=== PATIENT | female | born 1975 | race Caucasian/White ===

== ENCOUNTER → 2020-09-24 15:58 | Outpatient (CLI) | payer SELFPAY ==
--- NOTE | 2020-09-24 16:03 | MM_ITS ---
PROCEDURE: MM DIG SCREENING MAMM BI W/CAD Digital Breast Tomosynthesis Included CLINICAL INDICATION: SCREENING There is no personal or family history of breast cancer. COMPARISON: No exams were available for comparison TECHNIQUE: Standard CC and MLO images and 3D Tomosynthesis was obtained. R2 CAD reviewed. FINDINGS: Moderate diffuse fibroglandular densities are seen throughout both breast primarily upper outer quadrants. There is slightly asymmetrically increased glandular elements upper-outer quadrant right breast. Edwin images are helpful showing no suspicious lesion in either breast. There are no suspicious microcalcifications. IMPRESSION: Fibrofatty parenchyma with no suspicious lesions seen BI-RAD Category: 1 Negative FOLLOW-UP: 1YR 1 Year Follow-up (A letter has been sent to the patient regarding results of the study.) Dictated by: Dr. Aleks Mercedes MD 09/26/2020 09:51 Dr. Aleks Mercedes MD in [place] 09/26/2020 09:51
== END ==
PROVIDERS: PCP Family Medicine; Visit Provider Family Medicine
DX: Z12.31 Encounter for screening mammogram for malignant neoplasm of breast (principal)
CPT/HCPCS: 77063; 77067

== ENCOUNTER 2021-02-28 16:30 | Emergency (ER) | payer SELFPAY ==
[2021-02-28 16:30] VITALS: BP 136/70; PULSE 63; RESP 20; TEMP 36.8; O2SAT 96; BMI 28.3
--- NOTE | 2021-02-28 16:57 | HMH.EDUTC ---
[facility] [place] Disposition Clinical Impression: Otitis media Qualifiers: Otitis media type: suppurative Chronicity: acute Laterality: left Recurrence: non-recurrent Spontaneous tympanic membrane rupture: without spontaneous rupture Qualified Code(s): H66.002 - Acute suppurative otitis media without spontaneous rupture of ear drum, left ear Disposition: Home, Self-Care Condition on Discharge: Good Instructions: Middle Ear Infection Additional Instructions: Start antibiotic as soon as possible and be sure to take as ordered for full length of time even though he should start feeling better in 24-48 hours. Tylenol or Motrin as needed for pain or fever Encourage fluids, water, Gatorade, Powerade, Pedialyte if /toddler/child Warm compresses often helps when placed over ear Return immediately for new or worsening symptoms no noticeable improvement in 48-72 hours and in 10-14 days to ensure the ears are return to baseline. Follow-up with primary care Prescriptions: cephALEXin [Cephalexin 500mg Tab] 500 mg PO BID 10 Days #20 tab Transmission Status: Pending to [id number] Referrals: Juan C Walters MD [Primary Care Provider] - Time of Disposition: 17:10 Medical Decision Making - Vincent Inquiry Pt receiving controlled substance: No Vital Signs: 02/28/21 16:30 Temperature 98.3 F Temperature Source Oral Pulse Rate [Left Brachial] 63 Respiratory Rate 20 Blood Pressure [Left Arm] 136/70 Blood Pressure Mean [Left Arm] 92 Blood Pressure Source [Left Arm] Automatic Cuff Blood Pressure Position [Left Arm] Sitting 02 Sat by Pulse Oximetry 96 Oxygen Delivery Method Room Air [facility] [place] HPI - General Chief complaint: Urgent Treatment Center Stated complaint: ear infection Time Seen by Provider: 02/28/21 16:57 Mode of Arrival: Ambulatory Source of Information: Patient Limitations: No Limitations Description of Symptoms (Recalled from Triage Doc. by RN): PATIENT C/O DECREASED HEARING TO LEFT EAR THAT STARTED TODAY. RECENTLY HAD ALLERGY SYMPTOMS HEENT Symptoms (Recalled from RN notes): Yes Resp Symptoms (Recalled from RN notes): No Skin Symptoms (Recalled from RN notes): No MS Symptoms (Recalled from RN notes): No Functional Status (Recalled from RN notes): WNL - History of Present Illness Provider Complaint: 45 yr old female presnets for left ear pain. pt states her hearing has also decreased. - Related Data Previous Rx's Medication Instructions Recorded cephALEXin [Cephalexin 500mg Tab] 500 mg PO BID 10 Days #20 tab 02/28/21 Allergies Allergy/AdvReac Type Severity Reaction Status Date / Time No Known Allergies Allergy Verified 02/28/21 16:45 - Worker's Comp Is this a Worker's Comp case?: No H History - Hepatitis A Screen Drug use history?: No High risk sexual behaviors?: No History of sexually transmitted infection?: No Currently employed?: No Childcare worker?: No Do you have indoor plumbing?: Yes Do you have electricity?: Yes Attestation statement:: This patient has been screened for Hepatitis A risk factors. I have reviewed the patient's past medical history: Yes - Social History Alcohol Intake: current Alcohol Intake Frequency:: a few times a week Occupational Status: other ROS Obtained: Yes Systems reviewed as appropriate & no additional complaints - Constitutional Constitutional: Reports system reviewed and no additional complaints, except as docu, Denies fever(s) - Eyes Eyes: Reports system reviewed and no additional complaints, except as docu, Denies blurry vision - ENT Ears, Nose, Mouth, and Throat: Reports system reviewed and no additional complaints, except as docu, Reports otalgia - Cardiovascular Cardiovascular: Reports system reviewed and no additional complaints, except as docu, Denies chest pain - Respiratory Respiratory: Reports system reviewed and no additional complaints, except as docu, Denies cough - Gastrointestinal Gastrointestingal: Reports:
[2021-02-28 17:03] VITALS: BP 136/70; PULSE 63; RESP 20; TEMP 36.8; O2SAT 96
== END 2021-02-28 17:17 | disposition home or self-care (01) ==
PROVIDERS: Emergency Provider Nurse Practitioner Family; PCP Family Medicine
DX: H66.002 Acute suppurative otitis media without spontaneous rupture of ear drum, left ear (principal)
CPT/HCPCS: 99202; G0463

== ENCOUNTER → 2021-04-01 14:13 | Outpatient (CLI) | payer SELFPAY ==
--- NOTE | 2021-04-01 14:19 | MR_ITS ---
PROCEDURE: MR HEAD/BRAIN WO/W CON CLINICAL INDICATION: NEURAL HEARING LOSS OF LEFT EAR Neural hearing loss in lt ear x6wks. COMPARISON: No exams were available for comparison TECHNIQUE: Routine multiplanar multi echo sequences are performed without and with gadolinium enhancement. FINDINGS: No midline shift, mass effect, intracranial hemorrhage, or hydrocephalus is evident. The cerebellopontine angles, cerebellum, and brainstem have an unremarkable appearance. No enhancing lesions are apparent. Thin-section high-resolution T2 weighted images are obtained of the cerebellopontine angles with no obvious abnormalities. Axial and coronal pre and post enhanced images also obtained of the cerebellopontine angles showing no enhancing lesions. The 7th and 8th nerve complexes have an unremarkable appearance. There is a partial empty sella as a normal variant. The optic chiasm, corpus callosum, and craniocervical junction have an unremarkable appearance. No abnormal white matter signal intensities. No mastoid effusion. There is a small air-fluid level in left maxillary sinus and mild mucosal thickening of the right maxillary and sphenoid sinus as well as moderate mucosal thickening of the ethmoid sinuses and mild leftward nasal septal deviation. IMPRESSION: 1. No acute intracranial findings. 2. Unremarkable cerebellopontine angles. 3. Paranasal sinus disease. Dictated by: Douglas Stein MD 04/02/2021 10:58 Douglas Stein MD in [place] 04/02/2021 10:58
== END ==
PROVIDERS: PCP Family Medicine; Visit Provider Otolaryngology
DX: H90.5 Unspecified sensorineural hearing loss (principal); H90.42 Sensorineural hearing loss, unilateral, left ear, with unrestricted hearing on the contralateral side
CPT/HCPCS: 70553; A9576

== ENCOUNTER → 2022-04-13 10:33 | Outpatient (CLI) | payer SELFPAY ==
[2022-04-13 11:32] LABS: Basophils # 0.1 K/mm3 (0-0.2); Basophils % 1.6 % (0.1-2.0); Eosinophils # 0.1 K/mm3 (0.0-0.4); Eosinophils % 2.1 % (0.1-12.0); Hematocrit 38.5 % (37.0-47.0); Hemoglobin 13.2 g/dL (12.2-16.2); Mean Corpuscular HGB Conc 34.2 g/dL (31.8-35.4); Mean Corpuscular Hemoglobin 30.8 pg (27.0-31.2); Mean Corpuscular Volume 90.3 fl (81-99); Monocytes # 0.2 K/mm3 (0.1-1.0); Monocytes % 3.6 % (1.7-9.3); Neutrophils # 2.5 K/mm3 (1.8-7.8); Neutrophils % 51.7 % (37.0-80.0); Platelet Count 154 K/mm3 (142-424); Red Blood Count 4.27 M/mm3 (4.20-5.40); Red Cell Distribution Width 13.6 % (11.5-17.5); White Blood Count 4.8 K/mm3 (4.8-10.8)
[2022-04-13 11:55] LABS: Alanine Aminotransferase 19 U/L (12-78); Albumin Level 4.1 g/dl (3.5-5.0); Albumin/Globulin Ratio 1.8 (1.1-1.8); Alkaline Phosphatase 73 U/L (38-126); Anion Gap 11.3 mEq/L (5-15); Aspartate Amino Transferase 32 U/L (14-36); Bilirubin,Total 0.4 mg/dl (0.2-1.3); Blood Urea Nitrogen 10 mg/dl (7-17); Calcium 9.3 mg/dl (8.4-10.2); Carbon Dioxide 28 mmol/L (22.0-30.0); Chloride 105 mmol/L (98-107); Chol/HDL Ratio 3.3 (1-3.5); Cholesterol 175 mg/dl (140-200); Estimated Glomerular Filt Rate 132 ml/min (>60); GFR (African American) 159 ML/MIN (>60); Globulin 2.3 g/dL (1.3-3.2); Glucose 92 mg/dl (74-100); HDL Cholesterol 53 mg/dl (40-60); Potassium 4.3 mmoL/L (3.5-5.1); Sodium 140 mmol/L (136-145); Total Protein,Serum 6.4 g/dl (6.3-8.2); Triglycerides 65 mg/dl (30-150); VLDL Cholesterol 13 mg/dL (0-40)
[2022-04-13 12:06] LABS: Direct LDL Cholesterol 100.19 mg/dL (100-129)
[2022-04-13 12:12] LABS: 25-OH Vitamin D, Total 49.8 ng/mL (30-100); Hemoglobin A1C 5.2 % (4.0-6.0)
[2022-04-13 12:25] LABS: Thyroid Stimulating Hormone 1.72 uIU/mL (0.465-4.68)
[2022-04-13 12:44] LABS: Vitamin B12 823 pg/mL (239-931)
[2022-04-14 08:34] LABS: FSH 42.3 mIU/mL (.); LH 20.6 mIU/mL (.)
[2022-04-16 13:16] LABS: Estrogen 120 pg/mL (.)
[2022-04-19 21:12] LABS: Testosterone, Total, LC/MS 22.3 ng/dL (.)
== END ==
PROVIDERS: Visit Provider Nurse Practitioner Family
DX: N95.9 Unspecified menopausal and perimenopausal disorder (principal); N95.1 Menopausal and female climacteric states; R53.83 Other fatigue; Z13.1 Encounter for screening for diabetes mellitus; Z13.220 Encounter for screening for lipoid disorders
CPT/HCPCS: 36415; 80053; 80061; 82306; 82607; 82672; 83001; 83002; 83036; 84403; 84443; 85025

== ENCOUNTER → 2022-04-30 15:19 | Outpatient (CLI) | payer SELFPAY ==
--- NOTE | 2022-04-30 15:31 | MM_ITS ---
PROCEDURE INFORMATION: Exam: MG Bilateral Screening 3D Mammography Exam date and time: 04/30/2022 3:31 PM Age: 46 years old Clinical indication: Screening examination. No family history of breast cancer. TECHNIQUE: Imaging protocol: Bilateral Screening tomosynthesis and 2D mammography including computer-aided detection (CAD) when performed. COMPARISON: MG MM DIG SCREENING MAMM BI W/CAD 09/24/2020 4:04 PM FINDINGS: MAMMOGRAPHY: Breast composition: There are scattered areas of fibroglandular density. Mass: None. Architectural distortion: Stable diffuse architectural distortion with history of reduction mammoplasty. No suspicious architectural distortion. Calcifications: No suspicious calcifications. Asymmetric density: None. Skin thickening: None. Axillary adenopathy: None. IMPRESSION: No mammographic evidence of malignancy. Annual screening is recommended unless otherwise clinically indicated. ASSESSMENT: BI-RADS Category 2: Benign
== END ==
PROVIDERS: PCP Family Medicine; Visit Provider Nurse Practitioner Family
DX: Z12.31 Encounter for screening mammogram for malignant neoplasm of breast (principal)
CPT/HCPCS: 77063; 77067

== ENCOUNTER 2024-05-24 10:24 | Outpatient (CLI) | payer SELFPAY ==
--- NOTE | 2024-05-24 10:28 | MM_ITS ---
PROCEDURE INFORMATION: Exam: MG Bilateral Screening 3D Mammography Exam date and time: 05/24/2024 10:16 AM Age: 48 years old Clinical indication: Screening examination TECHNIQUE: Imaging protocol: Bilateral Screening tomosynthesis and 2D mammography including computer-aided detection (CAD) when performed. COMPARISON: 1. MG MM DIG SCREENING MAMM BI W/CAD 04/30/2022 3:31 PM 2. MG MM DIG SCREENING MAMM BI W/CAD 09/24/2020 4:04 PM FINDINGS: MAMMOGRAPHY: Breast composition: There are scattered areas of fibroglandular density. Mass: None. Architectural distortion: None. Calcifications: No suspicious calcifications. Asymmetric density: None. Skin thickening: None. Axillary adenopathy: None. IMPRESSION: No mammographic evidence of malignancy. Annual screening is recommended unless otherwise clinically indicated. ASSESSMENT: BI-RADS Category 1: Negative
== END 2024-05-24 23:59 | disposition home or self-care (01) ==
LOC: RAD 10:25
PROVIDERS: PCP Nurse Practitioner Family; Visit Provider Nurse Practitioner Family
DX: Z12.31 Encounter for screening mammogram for malignant neoplasm of breast (principal)
CPT/HCPCS: 77063; 77067

== ENCOUNTER 2024-06-08 10:50 | Outpatient (CLI) | payer SELFPAY ==
--- NOTE | 2024-06-08 10:54 | US_ITS ---
PROCEDURE: US TRANSVAGINAL CLINICAL INDICATION: OVARIAN CYST COMPARISON: US PTV US PELVIS-TRANSVAGINAL ONLY from 03/29/2017 FINDINGS: Transvaginal sonographic images of the pelvis were obtained. UTERUS: 5.8 cm x 4.4cmx 2.4 cm anteverted with a combined endometrial thickness of 1.9mm. There is an anterior fibroid measuring 0.8 cm x 0.9 cm x 1.1 cm. LEFT OVARY: 2.2cmx1.0cmx1.1cm with a volume of 1.3ml. RIGHT OVARY: 2.5 cmx 0.9 cmx0.9 cm with a volume of 1ml. Both ovaries are seen and appear normal. Doppler flow to both ovaries are seen. There is no fluid in the cul-de-sac. IMPRESSION: 1. Anteverted, small uterus. The endometrium is thin. 2. There is a 1.1 cm anterior fibroid. It is smaller in size from an ultrasound in 2017. 3. Both ovaries are seen and appear normal. 4. No fluid in the cul-de-sac. Dictated by: Toni Luna MD 06/09/2024 12:36 Toni Luna MD in [place] 06/09/2024 12:36
== END 2024-06-08 23:59 | disposition home or self-care (01) ==
LOC: RAD 10:51
PROVIDERS: PCP Nurse Practitioner Family; Visit Provider Nurse Practitioner Family
DX: N83.209 Unspecified ovarian cyst, unspecified side (principal); Z87.42 Personal history of other diseases of the female genital tract
CPT/HCPCS: 76830